=== PATIENT | female | born 1965 | race Caucasian/White ===

== ENCOUNTER → 2018-03-24 | Outpatient (CLI) | payer OTHER ==
[~2018-03-24] MED LIST: ALBUTEROL INHALER IH; ATOR20TA22 PO; AUG875 PO; BACDS PO; CEPT PO; CIP500 PO; CIPR-212 PO; CIPR-326 PO; CITA-128 PO; CLIN300C99 PO; CLON-303 *; CLONAZEPAM PO; CRAN250T PO; CRAN400C2 PO; CRANBERRY; CYC10 PO; CYCL-332 PO; DOC100 PO; GABA-549 PO; HYDEL PO; HYDR-3078 PO; HYDR-4309 PO; IBU800 PO; KET10 PO; LEV500 PO; LEVO25TA56 PO; LEVO75TA73 PO; LOR5 PO; MELO-205 PO; NOR5/325 PO; PAN40 PO; PER PO; PHENA200 PO; PRE20 PO; PRED20TA6 PO; PRO25 PO; PROAIRPT IH; PROG200C7 PO; PROM-110 PO; PROTONIX PO; RAN150 PO; TRA50 PO; [UNRECOGNIZED DRUG - CODE] PO; [UNRECOGNIZED DRUG - REMARK]; dex60pt PO
--- NOTE | 2018-03-25 08:37 | RADIOLOGY IMAGING REPORT ---
FACILITY: [facility] PATIENT NAME: AUBREY LOPEZ : [id number] MR: [id number] V: [id number] EXAM DATE: ORDERING PHYSICIAN: GREG SALTER TECHNOLOGIST: Marian Mendez PROCEDURE:BILATERAL DIGITAL SCREENING MAMMOGRAM WITH CAD ASSISTED INTERPRETATION & 3D TOMOSYNTHESIS COMPARISON:Prior mammograms 02/05/17, 01/23/15, 01/10/14, 12/15/12, 12/11/11. INDICATIONS:screening FINDINGS: There is prominent fatty replacement throughout the breasts. The parenchymal pattern has remained stable allowing for difference in mammographic technique & patient positioning. There is no evidence of malignant appearing mass, malignant appearing calcifications or other secondary sign of malignancy in either breast. DIAGNOSTIC CATEGORY 1--NEGATIVE. RECOMMENDATIONS: ROUTINE MAMMOGRAM AND CLINICAL EVALUATION. IMPRESSION: BIRADS 1: Negative No significant abnormality is seen. Dictated by: Kailey Dougherty M.D. on 03/24/2018 at 17:49 Transcribed by: SHABNAM on 03/25/2018 at 8:24 Approved by: Kailey Dougherty M.D. on 03/25/2018 at 8:36 [facility]
== END ==
LOC: MAMO 02:27
PROVIDERS: ATTEND Physician Assistant
DX: Z12.31 Encounter for screening mammogram for malignant neoplasm of breast (principal)
CPT/HCPCS: 77063; 77067

== ENCOUNTER 2018-03-25 02:54 | Day surgery (SDC) | payer OTHER ==
[~2018-03-25] VITALS: Ht 149.9 cm; Wt 85.3 kg
[2018-03-25] MEDS ORDERED: PROPOFOL EMUL(*) 10MG/ML 20 ML 60 ML ONE (08:26)
[2018-03-25] MEDS ORDERED: LIDOCAINE MPF 1% 5 ML VIAL ONE (08:26)
[2018-03-25] MEDS ORDERED: GLYCOPYRROLATE 0.2MG/ML 1 ML INJ IVP ONE (11:10)
[2018-03-25 11:53] VITALS: BP 133/77
[2018-03-25] MEDS ORDERED: NORMOSOL R SOLN(*) 1000 ML BAG 1,000 ML IV PRN (12:05)
[2018-03-25] MEDS ORDERED: LIDOCAINE/SOD BICARB 8.4% SYR ID ONE (12:05)
[2018-03-25 13:08] VITALS: BP 103/61
[2018-03-25 13:19] VITALS: BP 113/64
[2018-03-25 13:37] VITALS: BP 101/62
[2018-03-25 13:42] VITALS: BP 115/68
[2018-03-25 13:43] VITALS: BP 107/73
== END 2018-03-25 13:56 | disposition home or self-care (01) ==
LOC: OR 02:54
PROVIDERS: ATTEND Family Medicine
DX: Z12.11 Encounter for screening for malignant neoplasm of colon (principal)
CPT/HCPCS: 00812; 45378; J2001; J2704; J3490

== ENCOUNTER 2018-06-03 19:06 | Emergency (ER) | payer SELFPAY ==
--- NOTE | 2018-06-03 19:17 | ER Report ---
History and Physical Time Seen By MD: 19:11 Hx. of Stated Complaint: NIKIA STARTED HAVING PAIN IN MID CHEST THAT STARTED AROUND 1130, PATIENT STATES A LITTLE NAUSEA WITH PAIN. HPI/ROS CHIEF COMPLAINT: Chest pain HISTORY OF PRESENT ILLNESS: This is a 52 year old female. She had chest pain start this afternoon. She was watching her grandsons, and states that they got a little rambunctious. She started having pain in the central chest and off to the left side of the chest and a little to the neck/shoulder area on the left. Has some shortness of breath with this. Pain has not changes. Is described as an ache. Nothing makes it worse or better. She does smoke. She has no history of heart problems in the past. No history of lung diseases. No cough or fevers. Mild nausea. Allergies: Coded Allergies: Sulfa (Sulfonamide Antibiotics) (Unverified Allergy, Mild, RASH AND ITCHING, 04/24/16) Home Meds Active Scripts Prednisone (PREDNISONE) 20 Mg Tablet, 60 MG PO QDAY, #12 TAB 0 Refills Prov:CHRISTINE CAMARGO MD 06/03/18 Reported Medications [Blood Pressure Med] No Conflict Check, PO PRN Y for HYPERTENSION 06/03/18 Gabapentin (GABAPENTIN) 300 Mg Capsule, 2 MG PO QHS, CAPSULE 03/17/18 Levothyroxine Sodium (LEVOTHYROXINE SODIUM) 75 Mcg Tablet, 88 MCG PO QDAY, TAB 03/17/18 Meloxicam (MELOXICAM) 7.5 Mg Tablet, 7.5 MG PO BID Y for PAIN 07/08/16 Atorvastatin Calcium (LIPITOR) 20 Mg Tablet, 1 TAB PO QDAY, TAB TAKE ONE TABLET BY MOUTH ONCE A DAY AT BED TIME 10/01/14 Citalopram Hydrobromide (Citalopram Hbr) 20 Mg Tablet, 20 MG PO QAFTERNOON, 0 Refills 12/20/11 Reviewed Nurses Notes: Yes Hx Smoking: Yes (5-6 CIGS A DAY ) Smoking Status: Current: Every Day Smoker Exposure to Second Hand Smoke?: Yes Hx Substance Use Disorder: No Hx Alcohol Use: No Constitutional Vital Sign - Last 24 Hours 06/03/18 06/03/18 06/03/18 06/03/18 19:10 19:20 19:21 19:35 Temp 98.4 Pulse 85 96 87 98 Resp 16 14 11 14 B/P (MAP) 120/79 Pulse Ox 94 95 O2 Delivery Room Air 06/03/18 06/03/18 06/03/18 06/03/18 19:36 20:00 20:06 20:11 Pulse 86 80 77 Resp 15 20 15 B/P (MAP) 117/69 (85) Pulse Ox 91 94 92 06/03/18 06/03/18 06/03/18 20:26 20:30 20:37 Pulse 74 85 Resp 15 16 B/P (MAP) 107/68 (81) 138/88 (105) Pulse Ox 93 92 O2 Delivery Room Air Physical Exam General Appearance: The patient is alert. No acute distress. Eyes: Pupils are equal, round. No pallor, injection or icterus. ENT: Mucous membranes are moist. Normal oral mucosa. Posterior oropharynx is normal. Neck: Supple and non tender. Respiratory: Lungs have diffuse expiratory wheezing. Cardiovascular: Regular rate and rhythm. No murmurs, gallops or rubs. Normal capillary refill. Gastrointestinal: Abdomen is soft and non tender. Nondistended. Normal active bowel sounds. Neurological: Alert and oriented x3. Skin: Warm and dry. Musculoskeletal: Extremities are nontender. Has mild reproducible pain with palpation of the chest. No tenderness in palpation of the back and spine. DIFFERENTIAL DIAGNOSIS: After history and physical exam, differential diagnosis was considered for chest pain including but not limited to myocardial ischemia, pericarditis pulmonary embolus, chest wall pain, pleural inflammation and pulmonary infectious causes. Medical Decision Making Data Points Result Diagram: 06/03/18192906/03/181929 Laboratory Hematology Test 06/03/18 19:30 Red Blood Count 5.52 M/uL (4.17-5.56) Mean Corpuscular Volume 85.1 fL (80.0-96.0) Mean Corpuscular Hemoglobin 29.5 pg (26.0-33.0) Mean Corpuscular Hemoglobin Concent 34.6 g/dL (32.0-36.0) Red Cell Distribution Width 14.6 % (11.5-14.5) Mean Platelet Volume 7.2 fL (7.2-11.1) Neutrophils (%) (Auto) 47.1 % (39.4-72.5) Lymphocytes (%) (Auto) 37.1 % (17.6-49.6) Monocytes (%) (Auto) 8.7 % (4.1-12.4) Eosinophils (%) (Auto) 5.8 % (0.4-6.7) Basophils (%) (Auto) 1.3 % (0.3-1.4) Nucleated RBC Relative Count (auto) 0.0 /100WBC Neutrophils # (Auto) 4.0 K/uL (2.0-7.4) Lymphocytes # (Auto) 3.1 K/uL (1.3-3.6) Monocytes # (Auto) 0.7 K/uL (0.3-1.0) Eosinophils # (Auto) 0.5 K/uL (0.0-0.5) Basophils # (Auto) 0.1 K/uL (0.0-0.1) Nucleated RBC Absolute Count (auto) 0.00 K/uL D-Dimer Quantitative (PE/DVT) 0.37 ug/ml (0-0.50) Sodium Level 140 mmol/L (137-145) Potassium Level 3.8 mmol/L (3.5-5.0) Chloride Level 104 mmol/L (98-107) Carbon Dioxide Level 28 mmol/L (22-31) Blood Urea Nitrogen 9 mg/dl (7-18) Creatinine 0.90 mg/dl (0.52-1.04) Glomerular Filtration Rate Calc > 60.0 Random Glucose 93 mg/dl (75-110) Calcium Level 8.6 mg/dl (8.4-10.2) Total Bilirubin 0.2 mg/dl (0.2-1.3) Aspartate Amino Transf (AST/SGOT) 22 U/L (0-35) Alanine Aminotransferase (ALT/SGPT) 20 U/L (0-56) Alkaline Phosphatase 89 U/L (0-126) Troponin I < 0.012 ng/ml B-Type Natriuretic Peptide 8 pg/ml (0-100) Total Protein 7.1 g/dl (6.3-8.2) Albumin 4.0 g/dl (3.5-5.0) Chemistry Test 06/03/18 19:30 White Blood Count 8.4 k/uL (4.5-11.0) Red Blood Count 5.52 M/uL (4.17-5.56) Hemoglobin 16.3 g/dL (12.0-16.0) Hematocrit 47.0 % (34.0-47.0) Mean Corpuscular Volume 85.1 fL (80.0-96.0) Mean Corpuscular Hemoglobin 29.5 pg (26.0-33.0) Mean Corpuscular Hemoglobin Concent 34.6 g/dL (32.0-36.0) Red Cell Distribution Width 14.6 % (11.5-14.5) Platelet Count 355 K/uL (150-450) Mean Platelet Volume 7.2 fL (7.2-11.1) Neutrophils (%) (Auto) 47.1 % (39.4-72.5) Lymphocytes (%) (Auto) 37.1 % (17.6-49.6) Monocytes (%) (Auto) 8.7 % (4.1-12.4) Eosinophils (%) (Auto) 5.8 % (0.4-6.7) Basophils (%) (Auto) 1.3 % (0.3-1.4) Nucleated RBC Relative Count (auto) 0.0 /100WBC Neutrophils # (Auto) 4.0 K/uL (2.0-7.4) Lymphocytes # (Auto) 3.1 K/uL (1.3-3.6) Monocytes # (Auto) 0.7 K/uL (0.3-1.0) Eosinophils # (Auto) 0.5 K/uL (0.0-0.5) Basophils # (Auto) 0.1 K/uL (0.0-0.1) Nucleated RBC Absolute Count (auto) 0.00 K/uL D-Dimer Quantitative (PE/DVT) 0.37 ug/ml (0-0.50) Glomerular Filtration Rate Calc > 60.0 Calcium Level 8.6 mg/dl (8.4-10.2) Total Bilirubin 0.2 mg/dl (0.2-1.3) Aspartate Amino Transf (AST/SGOT) 22 U/L (0-35) Alanine Aminotransferase (ALT/SGPT) 20 U/L (0-56) Alkaline Phosphatase 89 U/L (0-126) Troponin I < 0.012 ng/ml B-Type Natriuretic Peptide 8 pg/ml (0-100) Total Protein 7.1 g/dl (6.3-8.2) Albumin 4.0 g/dl (3.5-5.0) Coagulation Test 06/03/18 19:30 D-Dimer Quantitative (PE/DVT) 0.37 ug/ml EKG/Imaging EKG Interpretation 12 lead EKG: Rhythm: normal sinus rhythm, rate 83 [place]: normal QRS: Somewhat low voltage ST segments: Nonspecific T-wave changes but no ST elevation or depression Imaging 2 VIEWS CHEST INDICATION: Chest pain. COMPARISON: 04/07/2012. FINDINGS: Cardiomediastinal silhouette and pulmonary vessels within normal limits. There is no focal infiltrate or lobar consolidation. There is no pneumothorax or pleural effusion. No nodule. Upper abdomen is unremarkable. No acute bony abnormality. IMPRESSION: 1. No acute cardiopulmonary process. Report Dictated By: Tristen Law at 06/03/2018 8:03 PM ED Course/Re-evaluation Clinical Indication for ER IV: IV Access ED Course Significant improvement with DuoNeb treatment. Wheezing decreased, less short of breath, and only mild pain now. The rest of the workup was negative as above. This appears to be inflammatory and she likely has early COPD with her smoking history. Will treat with Prednisone 60mg daily for 5 days as a burst, first dose given here in the ER. Use of Albuterol inhaler as well. Discussed smoking cessation as well. Decision to Disposition Date: Jun 03, 2018 Decision to Disposition Time: 20:24 Depart Departure Latest Vital Signs Vital Signs Date Time Temp Pulse Resp B/P (MAP) Pulse Ox O2 Delivery O2 Flow Rate FiO2 06/03/18 20:37 85 16 138/88 (105) 92 Room Air 06/03/18 19:10 98.4 Impression: Primary Impression: Wheezing Additional Impression: Pleuritic chest pain Condition: Improved Disposition: HOME OR SELF-CARE Referrals: GREG SALTER PA-C (PCP) New Scripts Prednisone (PREDNISONE) 20 Mg Tablet 60 MG PO QDAY, #12 TAB 0 Refills Prov: CHRISTINE CAMARGO MD 06/03/18 Patient Instructions: COPD (Chronic Obstructive Pulmonary Disease) (ED), Pleurisy (ED) Additional Instructions: We found that you pain is likely inflammatory in nature, causing the chest pain and the shortness of breath. This is going to be due in part to your tobacco used and likely early changes that lead to COPD. Use the albuterol inhaler. 2 puffs every 4 hours as needed for shortness of breath. Take Prednisone 20mg tablets, 3 tablets once a day for 4 more days. Rest for the next few days. Avoid stressful situations. 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 Problem Qualifiers CHRISTINE CAMARGO MD Jun 03, 2018 19:16
[2018-06-03] MEDS ORDERED: ASPIRIN 81 MG CHEW PO ONE (19:20)
[2018-06-03] MEDS ORDERED: ALBUTEROL/IPRATROPIUM 3 ML NEB NEB ONE (19:20)
[2018-06-03] MEDS ORDERED: BLOOD PRESSURE MED PO (19:40)
[2018-06-03 19:42] LABS: PLATELET COUNT, AUTOMATED 355 K/uL (150-450)
--- NOTE | 2018-06-03 20:07 | RADIOLOGY IMAGING REPORT ---
FACILITY: [facility] PATIENT NAME: Adrianne Frey : 1965 MR: [id number] V: [id number] EXAM DATE: ORDERING PHYSICIAN: CHRISTINE CAMARGO TECHNOLOGIST: [facility] Patient: Adrianne Frey : 1965 Visit/Account:[id number] Date of Sevice: 06/03/2018 2 VIEWS CHEST INDICATION: Chest pain. COMPARISON: 04/07/2012. FINDINGS: Cardiomediastinal silhouette and pulmonary vessels within normal limits. There is no focal infiltrate or lobar consolidation. There is no pneumothorax or pleural effusion. No nodule. Upper abdomen is unremarkable. No acute bony abnormality. IMPRESSION: 1. No acute cardiopulmonary process. Report Dictated By: Tristen Law at 06/03/2018 8:03 PM Report E-Signed By: Tristen Law at 06/03/2018 8:04 PM WSN:[id number]
[2018-06-03] MEDS ORDERED: predniSONE 20 MG TAB PO ONE (20:25)
[2018-06-03] MEDS ORDERED: ALBUTEROL 8 GM INHALER INH ONE (20:25)
[2018-06-03] MEDS ORDERED: PRED20TA6 PO (20:28)
[2018-06-03 20:37] VITALS: BP 138/88
--- NOTE | 2018-06-03 21:40 | EKG ---
[place] [facility] [place]IENT NAME: AUBREY LOPEZ : [id number] MR: [id number] V: [id number] EXAM DATE: ORDERING PHYSICIAN: CHRISTINE CAMARGO TECHNOLOGIST: ANABELLA Groves Reason : CHEST PAIN Blood Pressure : / mmHG Vent. Rate : 083 BPM Atrial Rate : 083 BPM P-R Int : 170 ms QRS Dur : 084 ms QT Int : 380 ms P-R-T Axes : 065 020 026 degrees QTc Int : 446 ms Normal sinus rhythm Low voltage QRS No ST-T abnormalities No previous ECGs available Confirmed by JOHN MONROE ([id number]) on 06/04/2018 7:33:03 AM Referred By: Confirmed By:JOHN MONROE
== END 2018-06-03 20:40 | disposition home or self-care (01) ==
LOC: ER 20:01
DX: R07.81 Pleurodynia (principal); R06.2 Wheezing
CPT/HCPCS: 83880; 84484; 85025; 85379; 94640; 99283; J3535; J7512; J7620; 71046; 82040; 82247; 82310; 82374; 82435; 82565; 82947; 84075; 84132; 84155; 84295; 84450; 84460; 84520

== ENCOUNTER 2019-03-07 16:01 | Emergency (ER) | payer SELFPAY ==
[~2019-03-07 16:01] MED LIST changes: +BLOOD PRESSURE MED PO; -HYDR-4309 PO; +HYDR-653 PO
--- NOTE | 2019-03-07 16:04 | ER Report ---
History and Physical Time Seen By MD: 16:03 HPI/ROS CHIEF COMPLAINT: Nausea, burning with urination, increased frequency since yesterday. HISTORY OF PRESENT ILLNESS: Patient is a 53-year-old female here with complaints of nausea, burning with urination, increased frequency since yesterday. Patient reports having some left-sided flank pain which she reports is similar to prior urinary tract infections. She also has mild right upper quadrant abdominal pain. Patient is afebrile, hemodynamically stable at time of evaluation with no rebound or guarding of the abdomen. REVIEW OF SYSTEMS: Constitutional: No fever, no chills. Eyes: No discharge. ENT: No sore throat. Cardiovascular: No chest pain, no palpitations. Respiratory: No cough, no shortness of breath. Gastrointestinal: + RUQ mild abdominal pain, + left CVA tenderness, + nausea with no vomiting. Genitourinary: + burning and increased frequency, no hematuria. Musculoskeletal: No back pain. Skin: No rashes. Neurological: No headache. Allergies: Coded Allergies: Sulfa (Sulfonamide Antibiotics) (Unverified Allergy, Mild, RASH AND ITCHING, 04/24/16) Home Meds Active Scripts Ondansetron 4 Mg Odt (ONDANSETRON 4 MG ODT) 4 Mg Tab.rapdis, 4 MG PO Q4-6H PRN for NAUSEA, #20 TAB Prov:PEDRO OSCAR DO 03/07/19 Reported Medications [Blood Pressure Med] No Conflict Check, PO PRN PRN for HYPERTENSION 06/03/18 Levothyroxine Sodium (LEVOTHYROXINE SODIUM) 75 Mcg Tablet, 88 MCG PO QDAY, TAB 03/17/18 Meloxicam (MELOXICAM) 7.5 Mg Tablet, 7.5 MG PO BID PRN for PAIN 07/08/16 Atorvastatin Calcium (LIPITOR) 20 Mg Tablet, 1 TAB PO QDAY, TAB TAKE ONE TABLET BY MOUTH ONCE A DAY AT BED TIME 10/01/14 Citalopram Hydrobromide (Citalopram Hbr) 20 Mg Tablet, 20 MG PO QAFTERNOON, 0 Refills 12/20/11 Hx Smoking: Yes (5-6 CIGS A DAY ) Smoking Status: Current: Every Day Smoker Exposure to Second Hand Smoke?: Yes Hx Substance Use Disorder: No Hx Alcohol Use: No Constitutional Physical Exam General Appearance: [The patient is alert, has no immediate need for airway protection and no signs of toxicity.] [ ] [Eyes:] [Pupils equal and round no pallor or injection.] [ENT, Mouth:] [Mucous membranes are moist.] Respiratory: [There are no retractions, lungs are clear to auscultation.] Cardiovascular: [Regular rate and rhythm.] [ ] Gastrointestinal: [Abdomen is soft and non tender, no masses, bowel sounds normal.] [Neurological:] [ ] [Skin:] [Warm and dry, no rashes.] [Musculoskeletal:] [Neck is supple non tender.] [Extremities are nontender, nonswollen and have full range of motion.] [ ] [DIFFERENTIAL DIAGNOSIS: After history and physical exam differential diagnosis was considered for] [ ] Medical Decision Making Data Points Laboratory Hematology Test 03/07/19 16:06 03/07/19 16:26 Urine Color Yellow Urine Clarity Slightly-cloudy Urine pH 5.0 pH (4.8-9.5) Urine Specific [place] 1.008 Urine Protein Negative mg/dL (NEGATIVE) Urine Glucose (UA) Negative mg/dL (NEGATIVE) Urine Ketones Negative mg/dL (NEGATIVE) Urine Blood Negative (NEGATIVE) Urine Nitrite Negative (NEGATIVE) Urine Bilirubin Negative (NEGATIVE) Urine Urobilinogen Negative mg/dL (0.2-1.9) Urine Leukocyte Esterase Negative (NEGATIVE) Urine RBC None /HPF (0-2/HPF) Urine WBC 1 /HPF (0-5/HPF) Urine Squamous Epithelial Cells Many /LPF (</=FEW) Urine Bacteria Few /HPF (NONE-FEW) Urine Mucus None /HPF (NONE-FEW) Red Blood Count 5.53 M/uL (4.17-5.56) Mean Corpuscular Volume 86.2 fL (80.0-96.0) Mean Corpuscular Hemoglobin 29.1 pg (26.0-33.0) Mean Corpuscular Hemoglobin Concent 33.7 g/dL (32.0-36.0) Red Cell Distribution Width 15.2 % (11.5-14.5) Mean Platelet Volume 7.0 fL (7.2-11.1) Neutrophils (%) (Auto) 56.9 % (39.4-72.5) Lymphocytes (%) (Auto) 30.8 % (17.6-49.6) Monocytes (%) (Auto) 7.4 % (4.1-12.4) Eosinophils (%) (Auto) 3.8 % (0.4-6.7) Basophils (%) (Auto) 1.1 % (0.3-1.4) Nucleated RBC Relative Count (auto) 0.0 /100WBC Neutrophils # (Auto) 4.3 K/uL (2.0-7.4) Lymphocytes # (Auto) 2.3 K/uL (1.3-3.6) Monocytes # (Auto) 0.6 K/uL (0.3-1.0) Eosinophils # (Auto) 0.3 K/uL (0.0-0.5) Basophils # (Auto) 0.1 K/uL (0.0-0.1) Nucleated RBC Absolute Count (auto) 0.00 K/uL Sodium Level 139 mmol/L (137-145) Potassium Level 4.2 mmol/L (3.5-5.0) Chloride Level 104 mmol/L (98-107) Carbon Dioxide Level 28 mmol/L (22-31) Blood Urea Nitrogen 12 mg/dl (7-18) Creatinine 0.90 mg/dl (0.52-1.04) Glomerular Filtration Rate Calc > 60.0 Random Glucose 94 mg/dl (75-110) Lactate 2.3 mmol/L (0.7-2.1) Calcium Level 8.7 mg/dl (8.4-10.2) Total Bilirubin 0.1 mg/dl (0.2-1.3) Aspartate Amino Transf (AST/SGOT) 23 U/L (0-35) Alanine Aminotransferase (ALT/SGPT) 23 U/L (0-56) Alkaline Phosphatase 88 U/L (0-126) Total Protein 7.4 g/dl (6.3-8.2) Albumin 3.9 g/dl (3.5-5.0) Lipase 293 U/L (23-300) Chemistry Test 03/07/19 16:06 03/07/19 16:26 Urine Color Yellow Urine Clarity Slightly-cloudy Urine pH 5.0 pH (4.8-9.5) Urine Specific [place] 1.008 Urine Protein Negative mg/dL (NEGATIVE) Urine Glucose (UA) Negative mg/dL (NEGATIVE) Urine Ketones Negative mg/dL (NEGATIVE) Urine Blood Negative (NEGATIVE) Urine Nitrite Negative (NEGATIVE) Urine Bilirubin Negative (NEGATIVE) Urine Urobilinogen Negative mg/dL (0.2-1.9) Urine Leukocyte Esterase Negative (NEGATIVE) Urine RBC None /HPF (0-2/HPF) Urine WBC 1 /HPF (0-5/HPF) Urine Squamous Epithelial Cells Many /LPF (</=FEW) Urine Bacteria Few /HPF (NONE-FEW) Urine Mucus None /HPF (NONE-FEW) White Blood Count 7.6 k/uL (4.5-11.0) Red Blood Count 5.53 M/uL (4.17-5.56) Hemoglobin 16.1 g/dL (12.0-16.0) Hematocrit 47.6 % (34.0-47.0) Mean Corpuscular Volume 86.2 fL (80.0-96.0) Mean Corpuscular Hemoglobin 29.1 pg (26.0-33.0) Mean Corpuscular Hemoglobin Concent 33.7 g/dL (32.0-36.0) Red Cell Distribution Width 15.2 % (11.5-14.5) Platelet Count 356 K/uL (150-450) Mean Platelet Volume 7.0 fL (7.2-11.1) Neutrophils (%) (Auto) 56.9 % (39.4-72.5) Lymphocytes (%) (Auto) 30.8 % (17.6-49.6) Monocytes (%) (Auto) 7.4 % (4.1-12.4) Eosinophils (%) (Auto) 3.8 % (0.4-6.7) Basophils (%) (Auto) 1.1 % (0.3-1.4) Nucleated RBC Relative Count (auto) 0.0 /100WBC Neutrophils # (Auto) 4.3 K/uL (2.0-7.4) Lymphocytes # (Auto) 2.3 K/uL (1.3-3.6) Monocytes # (Auto) 0.6 K/uL (0.3-1.0) Eosinophils # (Auto) 0.3 K/uL (0.0-0.5) Basophils # (Auto) 0.1 K/uL (0.0-0.1) Nucleated RBC Absolute Count (auto) 0.00 K/uL Glomerular Filtration Rate Calc > 60.0 Lactate 2.3 mmol/L (0.7-2.1) Calcium Level 8.7 mg/dl (8.4-10.2) Total Bilirubin 0.1 mg/dl (0.2-1.3) Aspartate Amino Transf (AST/SGOT) 23 U/L (0-35) Alanine Aminotransferase (ALT/SGPT) 23 U/L (0-56) Alkaline Phosphatase 88 U/L (0-126) Total Protein 7.4 g/dl (6.3-8.2) Albumin 3.9 g/dl (3.5-5.0) Lipase 293 U/L (23-300) Urinalysis Test 03/07/19 16:06 Urine Color Yellow Urine Clarity Slightly-cloudy Urine pH 5.0 pH (4.8-9.5) Urine Specific [place] 1.008 Urine Protein Negative mg/dL (NEGATIVE) Urine Glucose (UA) Negative mg/dL (NEGATIVE) Urine Ketones Negative mg/dL (NEGATIVE) Urine Blood Negative (NEGATIVE) Urine Nitrite Negative (NEGATIVE) Urine Bilirubin Negative (NEGATIVE) Urine Urobilinogen Negative mg/dL (0.2-1.9) Urine Leukocyte Esterase Negative (NEGATIVE) Urine RBC None /HPF (0-2/HPF) Urine WBC 1 /HPF (0-5/HPF) Urine Squamous Epithelial Cells Many /LPF (</=FEW) Urine Bacteria Few /HPF (NONE-FEW) Urine Mucus None /HPF (NONE-FEW) EKG/Imaging Imaging PATIENT NAME: Adrianne Frey : 1965 MR: [id number] V: [id number] EXAM DATE: [id number] ORDERING PHYSICIAN: PEDRO OSCAR TECHNOLOGIST: Location: [facility] [place] Patient: Adrianne Frey : 1965 Visit/Account:[id number] Date of Sevice: 03/07/2019 CT ABDOMEN PELVIS W/ CON HISTORY: left flank, right upper abd pain TECHNIQUE: Following administration of IV contrast contiguous axial images acquired through the abdomen/pelvis. Coronal and sagittal reformatting also performed.Dose Lowering Technique One of the following dose optimization techniques was utilized in the performance of this exam: Automated exposure control; adjustment of the mA and/or kV according to the patient's size; or use of an iterative reconstruction technique. Specific details can be referenced in the facility's radiology CT exam operational policy. CONTRAST: 75 mL Isovue-370 COMPARISON: October 01, 2014 FINDINGS: Visualized lung bases: There is a small band of scarring versus atelectasis in the inferior right middle lobe Hepatobiliary: There appears to be increased density in the gallbladder fundus which may represent stones or sludge. No evidence of biliary ductal dilatation. Spleen: Negative. Adrenals: Negative. Pancreas: Negative. Kidneys ureters or bladder: . There is no evidence of hydronephrosis or hydroureter or perinephric stranding Genitalia: Hysterectomy GI: There is thickening at the GE junction and possible small hiatal hernia. The cecum is located anterior and medial to the right lobe the liver. There is no evidence of bowel obstruction. The appendix is not definitively seen. Vessels/spaces/nodes: There shotty retroperitoneal lymph nodes that appears stable. There are mild atherosclerotic calcifications in the abdomen and pelvis Bones/soft tissues: There is a ventral hernia to the left midline containing omentum. The hernia opening measures approximately 2 cm and has increased slightly when compared to the prior study. there are moderate spondylotic changes in the lumbar spine Additional findings: None pertinent. IMPRESSION: There is a ventral hernia to the left midline containing omentum There is thickening of the GE junction and possible small hiatal hernia. This could be related to inflammation although clinical correlation needed. The hernia opening measures proximal and 2 cm and has increased slightly when compared to the prior study. Pelvis is not definitively seen. No evidence of bowel obstruction. No evidence of hydronephrosis. There appears to be increased density in the gallbladder fundus which may represent stones or sludge. This could be further evaluated with ultrasound ED Course/Re-evaluation ED Course Patient is a 53-year-old female here with complaints of right upper quadrant abdominal pain, burning with urination. Urinalysis was unremarkable. CT imaging showed no acute findings aside from possible sludging in the gallbladder without signs of cholecystitis. Labs were unremarkable, there is no leukocytosis. I updated the patient regarding these findings and she voiced understanding. Recommend close PCP follow-up and if right upper quadrant pain persists or worsens, patient was advised to follow-up with surgery for consideration for cholecystectomy. Patient was hemodynamically stable throughout course, afebrile. Return precautions provided. Decision to Disposition Date: Mar 07, 2019 Decision to Disposition Time: 17:31 Depart Departure Latest Vital Signs Impression: Primary Impression: Left flank pain Additional Impression: Right upper quadrant abdominal pain Condition: Improved Disposition: HOME OR SELF-CARE Referrals: GREG SALTER PA-C (PCP) New Scripts Ondansetron 4 Mg Odt (ONDANSETRON 4 MG ODT) 4 Mg Tab.rapdis 4 MG PO Q4-6H PRN for NAUSEA, #20 TAB Prov: PEDRO OSCAR DO 03/07/19 Patient Instructions: Abdominal Pain (ED) Additional Instructions: Please drink plenty of water. You may take Zofran 1 tablet every 4-6 hours as needed for nausea control. There were no signs of kidney infection on the labs and imaging. You do seem to have a gallstone or sludging in the gallbladder with no signs of current infection, please consider following up with surgery if you have persistent or ongoing right upper quadrant abdominal pain. Please return promptly if you develop difficulty urinating, fevers, worsening abdominal pain, abdominal distention, inability to keep down food or fluids. Problem Qualifiers PEDRO OSCAR DO Mar 07, 2019 16:04
[2019-03-07] MEDS ORDERED: NS(*) 0.9% 1000 ML BAG 1,000 ML IV ONE (16:14)
[2019-03-07] MEDS ORDERED: ONDANSETRON 4 MG/2 ML VIAL IVP ONE (16:15)
[2019-03-07] MEDS ORDERED: KETOROLAC 30 MG/ML VIAL IVP ONE (16:15)
[2019-03-07] MEDS ORDERED: IOPAMIDOL 76% 150 ML INFUS BTL 150 ML ONE (16:31)
[2019-03-07 16:34] LABS: PLATELET COUNT, AUTOMATED 356 K/uL (150-450)
--- NOTE | 2019-03-07 17:24 | RADIOLOGY IMAGING REPORT ---
FACILITY: [facility] - [place] PATIENT NAME: Adrianne Frey : 1965 MR: [id number] V: [id number] EXAM DATE: ORDERING PHYSICIAN: PEDRO OSCAR TECHNOLOGIST: Location: [facility] - [place] Patient: Adrianne Frey : 1965 Visit/Account:[id number] Date of Sevice: 03/07/2019 CT ABDOMEN PELVIS W/ CON HISTORY: left flank, right upper abd pain TECHNIQUE: Following administration of IV contrast contiguous axial images acquired through the abdom en/pelvis. Coronal and sagittal reformatting also performed.Dose Lowering Technique One of the following dose optimization techniques was utilized in the performance of this exam: Autom ated exposure control; adjustment of the mA and/or kV according to the patient's size; or use of an i terative reconstruction technique. Specific details can be referenced in the facility's radiology C T exam operational policy. CONTRAST: 75 mL Isovue-370 COMPARISON: October 01, 2014 FINDINGS: Visualized lung bases: There is a small band of scarring versus atelectasis in the inferior right mi ddle lobe Hepatobiliary: There appears to be increased density in the gallbladder fundus which may represent st ones or sludge. No evidence of biliary ductal dilatation. Spleen: Negative. Adrenals: Negative. Pancreas: Negative. Kidneys ureters or bladder: . There is no evidence of hydronephrosis or hydroureter or perinephric s tranding Genitalia: Hysterectomy GI: There is thickening at the GE junction and possible small hiatal hernia. The cecum is located a nterior and medial to the right lobe the liver. There is no evidence of bowel obstruction. The appe ndix is not definitively seen. Vessels/spaces/nodes: There shotty retroperitoneal lymph nodes that appears stable. There are mild atherosclerotic calcifications in the abdomen and pelvis Bones/soft tissues: There is a ventral hernia to the left midline containing omentum. The hernia op ening measures approximately 2 cm and has increased slightly when compared to the prior study. there are moderate spondylotic changes in the lumbar spine Additional findings: None pertinent. IMPRESSION: There is a ventral hernia to the left midline containing omentum There is thickening of the GE junction and possible small hiatal hernia. This could be related to in flammation although clinical correlation needed. The hernia opening measures proximal and 2 cm and h as increased slightly when compared to the prior study. Pelvis is not definitively seen. No evidence of bowel obstruction. No evidence of hydronephrosis. There appears to be increased density in the gallbladder fundus which may represent stones or sludge. This could be further evaluated with ultrasound Report Dictated By: Kailey Dougherty MD at 03/07/2019 5:08 PM Report E-Signed By: Kailey Dougherty MD at 03/07/2019 5:19 PM BHAVYAN:NIC
[2019-03-07] MEDS ORDERED: ONDA4TAB9 PO (17:35)
[2019-03-07 17:41] VITALS: BP 132/82
== END 2019-03-07 17:54 | disposition home or self-care (01) ==
LOC: ER 16:17
DX: R10.12 Left upper quadrant pain (principal); R30.9 Painful micturition, unspecified
CPT/HCPCS: 74177; 81001; 83605; 83690; 85025; 96361; 96374; 96375; 99284; J1885; J2405; J7030; Q9967; 82040; 82247; 82310; 82374; 82435; 82565; 82947; 84075; 84132; 84155; 84295; 84450; 84460; 84520

== ENCOUNTER → 2019-03-09 | Outpatient (CLI) | payer SELFPAY ==
[~2019-03-09] MED LIST changes: +ONDA4TAB9 PO
--- NOTE | 2019-03-09 10:47 | EKG ---
FACILITY: [facility] - [place] PATIENT NAME: AUBREY LOPEZ : [id number] MR: [id number] V: [id number] EXAM DATE: ORDERING PHYSICIAN: KIERA TONG TECHNOLOGIST: LV Test Reason : EKG Blood Pressure : / mmHG Vent. Rate : 077 BPM Atrial Rate : 077 BPM P-R Int : 166 ms QRS Dur : 070 ms QT Int : 384 ms P-R-T Axes : 032 014 016 degrees QTc Int : 434 ms Normal sinus rhythm Normal ECG When compared with ECG of 03-JUN-2018 19:23, No significant change was found Confirmed by ALVAREZ WORRELL ([id number]) on 03/10/2019 9:18:55 AM Referred By: Confirmed By:ALVAREZ WORRELL
--- NOTE | 2019-03-09 10:57 | RADIOLOGY IMAGING REPORT ---
[place] [facility] [place]: Adrianne Frey : 1965 MR: [id number] V: [id number] EXAM DATE: ORDERING PHYSICIAN: KIERA TONG TECHNOLOGIST: Location: [facility] Patient: Adrianne Frey : 1965 Visit/Account:[id number] Date of Sevice: 03/09/2019 Chest with lateral, two views. HISTORY: Preop, smoker. COMPARISON: 06/03/2018. Three images were obtained. Bronchovascular markings are slightly accentuated. The heart and medias tinum are unremarkable. Pulmonary vessels are otherwise unremarkable. The lungs are clear. The pleu ral surfaces are unremarkable. No pneumothorax. No acute bony abnormalities. IMPRESSION: No evidence of acute cardiopulmonary disease. Report Dictated By: Gustavo Griffith MD at 03/09/2019 10:49 AM Report E-Signed By: Gustavo Griffith MD at 03/09/2019 10:51 AM WSN:[id number]
== END ==
LOC: RESP 10:00
PROVIDERS: ATTEND Surgery
DX: Z01.818 Encounter for other preprocedural examination (principal); J44.9 Chronic obstructive pulmonary disease, unspecified
CPT/HCPCS: 71046

== ENCOUNTER 2019-03-29 01:04 | Day surgery (SDC) | payer SELFPAY ==
[~2019-03-29] VITALS: Ht 149.9 cm; Wt 93.9 kg
[~2019-03-29 01:04] MED LIST changes: +CHOL100058 PO
[2019-03-29] MEDS ORDERED: INDOCYANINE GREEN 25 MG VIAL IVP ONE (08:25)
[2019-03-29] MEDS ORDERED: LIDOCAINE/SOD BICARB 8.4% SYR ID ONE (08:30)
[2019-03-29] MEDS ORDERED: ceFAZolin(*) 2GM/D5W 50ML 50 ML IVPB ONE (08:30)
[2019-03-29] MEDS ORDERED: NORMOSOL R SOLN(*) 1000 ML BAG 1,000 ML IV PRN (08:30)
[2019-03-29] MEDS ORDERED: FAMOTIDINE 20 MG TAB PO ONE (08:30)
[2019-03-29] MEDS ORDERED: MIDAZOLAM 2 MG/2 ML VIAL IVP PRN (08:30)
[2019-03-29] MEDS ORDERED: fentaNYL CITR 100 MCG/2 ML AMP ONE ×2 (09:18→11:31)
[2019-03-29] MEDS ORDERED: DEXAMETHASONE SOD PHOS 10MG/ML ONE (09:19)
[2019-03-29] MEDS ORDERED: ONDANSETRON 4 MG/2 ML VIAL ONE (09:19)
[2019-03-29] MEDS ORDERED: LIDOCAINE MPF 1% 5 ML VIAL ONE (09:19)
[2019-03-29] MEDS ORDERED: ROCURONIUM BROM 10 MG/ML 10 ML ONE (09:19)
[2019-03-29] MEDS ORDERED: PROPOFOL EMUL(*) 10MG/ML 20 ML 20 ML ONE (09:19)
[2019-03-29 09:20] VITALS: BP 152/84
[2019-03-29] MEDS ORDERED: KETAMINE HCL-NS 50 MG/5 ML SYR ONE (09:21)
[2019-03-29] MEDS ORDERED: BUPIVACAINE/EPI 0.5% 50ML VIAL INFIL ONE (09:26)
[2019-03-29] MEDS ORDERED: NS(*) 0.9% 100 ML BAG 200 ML ONE (09:55)
[2019-03-29] MEDS ORDERED: ePHEDrine 25 MG/5 ML DISP.SYR IVP ONE (10:49)
[2019-03-29] MEDS ORDERED: TRAM-420 PO (11:23)
--- NOTE | 2019-03-29 11:26 | Short(Outpt) Discharge Summary ---
Discharge Summary Reason for Hosp/Final Diag: (1) Abdominal pain Status: Acute Hospital Course & Plan: pt presented for robotic cholecystectomy, ventral hernia repair without mesh, and egd. she tolerated the procedures well. path pending. she will be discharged home when criteria met. Departure Discharge to: Home Discharge Instructions Home Meds Active Scripts Tramadol Hcl (TRAMADOL HCL) 50 Mg Tablet, 50 MG PO Q4H, #20 TAB Prov:KIERA ZHU 03/29/19 Reported Medications Cholecalciferol (Vitamin D3) (VITAMIN D) 1,000 Unit Capsule, 3000 UNIT PO, CAPSULE 03/23/19 Levothyroxine Sodium (LEVOTHYROXINE SODIUM) 75 Mcg Tablet, 88 MCG PO QDAY, TAB 03/17/18 Meloxicam (MELOXICAM) 7.5 Mg Tablet, 7.5 MG PO BID PRN for PAIN 07/08/16 Atorvastatin Calcium (LIPITOR) 20 Mg Tablet, 1 TAB PO QDAY, TAB TAKE ONE TABLET BY MOUTH ONCE A DAY AT BED TIME 10/01/14 Citalopram Hydrobromide (Citalopram Hbr) 20 Mg Tablet, 20 MG PO QAFTERNOON, 0 Refills 12/20/11 Discontinued Reported Medications [Blood Pressure Med] No Conflict Check, PO PRN PRN for HYPERTENSION 06/03/18 Discontinued Scripts Ondansetron 4 Mg Odt (ONDANSETRON 4 MG ODT) 4 Mg Tab.rapdis, 4 MG PO Q4-6H PRN for NAUSEA, #20 TAB Prov:PEDRO OSCAR DO 03/07/19 Diet: Regular Activity: No Heavy Lifting Special Instructions: no lifting more than 15 lbs for 6 wks. ok to shower tomorrow. f/u [facility] 2 wks ([phone]). KIERA ZHU March 29, 2019 11:26
--- NOTE | 2019-03-29 11:34 | Post Operative Progress Note ---
Post Operative Progress Note Date: March 29, 2019 Time: 11:26 Surgeon: dr. holly zhu #[id number] Painting Contractor: none Anesthesia: gen, local dr. calderón Pre-Op Diagnosis: abd pain, ventral hernia, ge junction thickening Post-Op Diagnosis: same Findings: 2 cm ventral hernia Procedure(s): robotic cholecystectomy, laparoscopic ventral hernia repair without mesh, egd with biopsies Specimen Removed:(May be N/A): gb, egd biopsies Complications: none Fluids: iv crystalloid Estimated Blood Loss: minimal Date OP Note Dictated: March 29, 2019 Time OP Note Dictated: 11:29 KIERA ZHU March 29, 2019 11:34
[2019-03-29] MEDS ORDERED: traMADol 50 MG TAB ONE (11:51)
[2019-03-29] MEDS ORDERED: PROMETHAZINE 25 MG/ML 1 ML AMP ONE (11:56)
--- NOTE | 2019-03-29 12:03 | OPERATIVE REPORT 1 ---
EVENT DATE: March 29, 2019 SURGEON: Ari Stark MD ANESTHESIOLOGIST: Rubén George MD ANESTHESIA: General with local. RN REVIEW: None. PREOPERATIVE DIAGNOSES 1. Right upper quadrant pain. 2. Ventral hernia. 3. GE junction thickening on CT scan. POSTOPERATIVE DIAGNOSES 1. Right upper quadrant pain. 2. Ventral hernia. 3. Gastroesophageal junction thickening on CT scan. PROCEDURE PERFORMED 1. Robotic cholecystectomy. 2. Laparoscopic ventral hernia repair without mesh. 3. Esophagogastroduodenoscopy with biopsies. FLUIDS IV crystalloids. ESTIMATED BLOOD LOSS Minimal. SPECIMENS 1. Gallbladder. 2. EGD biopsies. COMPLICATIONS None. INDICATIONS This is a 53-year old female with recent right upper quadrant pain. CT scan showed possible sludge or stones. CT scan also showed thickening of the GE junction. Patient also has a 2 cm ventral hernia just above and to the left of the umbilicus. Risks and benefits of the procedures were explained and consent was signed. DESCRIPTION OF PROCEDURE Patient was taken to the operating room and placed in the supine position. General anesthesia was administered per the Anesthesia team. Patient was prepped and draped in normal sterile fashion. Local analgesia was injected into the dermis below the left costal margin and OptiView technique was used to place an 8 mm port. After injecting local analgesia and under direct visit, two left sided 8 mm ports were placed. I used these ports to take down adhesions and reduce the hernia. This was done with LigaSure and sharp dissection. Once the fatty tissue was completely reduced from the hernia defect, I placed a fourth 8 mm port through this site after injecting local analgesia and under direct vision. The robot was then docked. The fundus was grasped and retracted superiorly and laterally. The infundibulum was grasped and retracted. Electrocautery was used to free the cystic duct, the cystic artery and surrounding tissue. Both structures were seen going directly to the gallbladder. The cystic artery was very small and cautery easily divided. Hemostasis was assured. Three clips were then placed on the cystic duct and it was divided sharply between the distal two clips. The gallbladder was taken off the liver bed with electrocautery. It was removed with Endo Catch bag through one of the port sites. Hemostasis was assured. Laparoscopically, I then closed the 2 cm hernia defect with an 0 Prolene stitch x2, one of them used in a [id number] fashion. Ports were removed. Pneumoperitoneum was relieved. Final port was removed. All skin incisions were closed with 4-0 Monocryl subcuticular stitches. More local analgesia was injected. Appropriate dressings were applied. I then passed the gastroscope through the oropharynx down the esophagus into the stomach and into the first and second portions of the duodenum. There was mild inflammation in the first portion of the duodenum. Biopsies were taken. Scope was retroflexed. There was mild inflammation diffusely throughout the stomach including the fundus and the cardia. Biopsies were taken from the antrum. Scope was withdrawn into the esophagus. There may have been thickening of the distal esophagus but there was no mass. Biopsies were taken. Hemostasis was assured. Insufflation was suctioned. Remainder of the esophagus was within normal limits. The scope was withdrawn. The patient tolerated the procedure well and there were no complications. [facility]PITALRabia
[2019-03-29 12:15] VITALS: BP 109/69
[2019-03-29 12:49] VITALS: BP 107/64
[2019-03-29] MEDS ORDERED: ACETAMINOPHEN 500 MG TAB PO ONE (12:55)
[2019-03-29 13:01] VITALS: BP 115/68
--- NOTE | 2019-03-29 13:03 | NUR ---
RN INTO ROOM. PT. GIVEN ADDITIONAL MEDICATION FOR PAIN. ENCOURAGED TO DEEP BREATH AND COUGH. GIVEN CHEESE AND CRACKERS TOLERATING. WILL TRY AEROBIKA.
[2019-03-29 13:55] VITALS: BP 122/86
[2019-03-29 13:56] VITALS: BP 131/80
== END 2019-03-29 12:15 | disposition home or self-care (01) ==
LOC: OR 01:04
PROVIDERS: ATTEND Surgery
DX: R10.11 Right upper quadrant pain (principal); K43.9 Ventral hernia without obstruction or gangrene; R93.3 Abnormal findings on diagnostic imaging of other parts of digestive tract; J44.9 Chronic obstructive pulmonary disease, unspecified
CPT/HCPCS: 43239; 47562; 49652; 87077; 88304; 88305; 88313; 88342; 94667; J1100; J2001; J2405; J2550; J2704; J3010; J3490; J7050; S2900; J0690

== ENCOUNTER 2019-05-14 20:45 | Emergency (ER) | payer SELFPAY ==
[~2019-05-14 20:45] MED LIST changes: +PANT40TA65 PO; +TRAM-420 PO
--- NOTE | 2019-05-14 21:20 | ER Report ---
History and Physical Time Seen By MD: 21:18 Hx. of Stated Complaint: patient has a sharp pain in left upper quadrant that radiates across abdomen that started last night, patient states it hurts when she breaths. HPI/ROS CHIEF COMPLAINT: left upper abdominal pain. HISTORY OF PRESENT ILLNESS: This is a 53 year old female. Having some left upper abdominal pain which started last night. Radiates across to epigastric area. Some nausea, but no vomiting. Normal bowel movements. No problems with urination. Has some increase in pain with deep breaths. No cough or shortness of breath. No fevers or chills noted. Denies back pain. No weakness or numbness associated. NO blood in stool or melena. Has history of hiatal hernia and is on Protonix. REVIEW OF SYSTEMS: As above. Allergies: Coded Allergies: Sulfa (Sulfonamide Antibiotics) (Unverified Allergy, Mild, RASH AND ITCHING, 05/14/19) Home Meds Active Scripts Pantoprazole Sodium (PANTOPRAZOLE SODIUM) 40 Mg Tablet.dr, 40 MG PO QDAY for 30 Days, #30 TAB.SR 2 Refills Prov:KIERA TONG 05/03/19 Reported Medications Cholecalciferol (Vitamin D3) (VITAMIN D) 1,000 Unit Capsule, 3000 UNIT PO, CAP SHERRIE 03/23/19 Levothyroxine Sodium (LEVOTHYROXINE SODIUM) 75 Mcg Tablet, 88 MCG PO QDAY, TAB 03/17/18 Meloxicam (MELOXICAM) 7.5 Mg Tablet, 7.5 MG PO BID PRN for PAIN 07/08/16 Atorvastatin Calcium (LIPITOR) 20 Mg Tablet, 1 TAB PO QDAY, TAB TAKE ONE TABLET BY MOUTH ONCE A DAY AT BED TIME 10/01/14 Citalopram Hydrobromide (Citalopram Hbr) 20 Mg Tablet, 20 MG PO QAFTERNOON, 0 Refills 12/20/11 Discontinued Scripts Tramadol Hcl (TRAMADOL HCL) 50 Mg Tablet, 50 MG PO Q4H, #20 TAB Prov:KIERA TONG 03/29/19 Reviewed Nurses Notes: Yes Hx Smoking: Yes (5-6 CIGS A DAY ) Smoking Status: Current: Every Day Smoker Exposure to Second Hand Smoke?: Yes Hx Substance Use Disorder: No Hx Alcohol Use: No Constitutional Vital Sign - Last 24 Hours 05/14/19 05/14/19 05/14/19 05/14/19 20:56 21:00 21:15 21:30 Temp 97.8 Pulse 83 74 77 74 Resp 24 B/P (MAP) 128/66 116/77 (90) ???/??? (1665) Pulse Ox 92 92 91 92 O2 Delivery Room Air Intake and Output 05/14/19 05/14/19 05/15/19 15:01 23:01 07:01 Intake Total 1000 ml Balance 1000 ml Physical Exam General Appearance: The patient is alert. No acute distress. Eyes: Pupils are equal, round. No pallor, injection or icterus. ENT: Mucous membranes are moist. Normal oral mucosa. Posterior oropharynx is normal. Neck: Supple and non tender. Respiratory: Lungs are clear to auscultation. Cardiovascular: Regular rate and rhythm. No murmurs, gallops or rubs. Normal capillary refill. Gastrointestinal: Abdomen is soft, tender in the left upper quadrant and somewhat in epigastric area. Nondistended. No rebound or guarding. Normal active bowel sounds. No costovertebral angle tenderness with percussion. Some increase with deep breathing. Neurological: Alert and oriented x3. Cranial nerves II through XII show no acute deficits on my exam. No focal neurologic deficits in the extremities. Skin: Warm and dry. No rashes. Musculoskeletal: Extremities are nontender. No tenderness in palpation of the cervical, thoracic and lumbar spine. DIFFERENTIAL DIAGNOSIS: After history and physical exam, differential diagnosis was considered for abdominal pain, left upper quadrant and into epigastric area, most likely GI related such as ulcer, hiatal hernia, colitis, but would also consider pulmonary problem or urinary problem. Medical Decision Making Data Points Result Diagram: 05/14/19215405/14/192154 Laboratory Hematology Test 05/14/19 00:00 05/14/19 21:55 Urine Color Yellow Urine Clarity Clear Urine pH 5.0 pH (4.8-9.5) Urine Specific [place] 1.027 Urine Protein Negative mg/dL (NEGATIVE) Urine Glucose (UA) Negative mg/dL (NEGATIVE) Urine Ketones Negative mg/dL (NEGATIVE) Urine Blood Negative (NEGATIVE) Urine Nitrite Negative (NEGATIVE) Urine Bilirubin Negative (NEGATIVE) Urine Urobilinogen 0.2 mg/dL (0.2-1.9) Urine Leukocyte Esterase Negative (NEGATIVE) Urine RBC None /HPF (0-2/HPF) Urine WBC 3 /HPF (0-5/HPF) Urine Squamous Epithelial Cells Many /LPF (</=FEW) Urine Bacteria Few /HPF (NONE-FEW) Urine Hyaline Casts Many /LPF (NONE-FEW) Urine Mucus Few /HPF (NONE-FEW) Red Blood Count 5.15 M/uL (4.17-5.56) Mean Corpuscular Volume 86.9 fL (80.0-96.0) Mean Corpuscular Hemoglobin 30.1 pg (26.0-33.0) Mean Corpuscular Hemoglobin Concent 34.6 g/dL (32.0-36.0) Red Cell Distribution Width 15.0 % (11.5-14.5) Mean Platelet Volume 7.3 fL (7.2-11.1) Neutrophils (%) (Auto) 56.1 % (39.4-72.5) Lymphocytes (%) (Auto) 28.4 % (17.6-49.6) Monocytes (%) (Auto) 9.4 % (4.1-12.4) Eosinophils (%) (Auto) 5.0 % (0.4-6.7) Basophils (%) (Auto) 1.1 % (0.3-1.4) Nucleated RBC Relative Count (auto) 0.2 /100WBC Neutrophils # (Auto) 4.3 K/uL (2.0-7.4) Lymphocytes # (Auto) 2.2 K/uL (1.3-3.6) Monocytes # (Auto) 0.7 K/uL (0.3-1.0) Eosinophils # (Auto) 0.4 K/uL (0.0-0.5) Basophils # (Auto) 0.1 K/uL (0.0-0.1) Nucleated RBC Absolute Count (auto) 0.01 K/uL Sodium Level 141 mmol/L (137-145) Potassium Level 4.1 mmol/L (3.5-5.0) Chloride Level 106 mmol/L (98-107) Carbon Dioxide Level 24 mmol/L (22-31) Blood Urea Nitrogen 13 mg/dl (7-18) Creatinine 1.10 mg/dl (0.52-1.04) Glomerular Filtration Rate Calc 51.8 Random Glucose 102 mg/dl (75-110) Calcium Level 8.9 mg/dl (8.4-10.2) Total Bilirubin 0.3 mg/dl (0.2-1.3) Aspartate Amino Transf (AST/SGOT) 30 U/L (0-35) Alanine Aminotransferase (ALT/SGPT) 28 U/L (0-56) Alkaline Phosphatase 91 U/L (0-126) Total Protein 7.6 g/dl (6.3-8.2) Albumin 4.1 g/dl (3.5-5.0) Amylase Level 89 U/L (0-110) Lipase 172 U/L (23-300) Serum Alcohol < 10 mg/dl Chemistry Test 05/14/19 00:00 05/14/19 21:55 Urine Color Yellow Urine Clarity Clear Urine pH 5.0 pH (4.8-9.5) Urine Specific [place] 1.027 Urine Protein Negative mg/dL (NEGATIVE) Urine Glucose (UA) Negative mg/dL (NEGATIVE) Urine Ketones Negative mg/dL (NEGATIVE) Urine Blood Negative (NEGATIVE) Urine Nitrite Negative (NEGATIVE) Urine Bilirubin Negative (NEGATIVE) Urine Urobilinogen 0.2 mg/dL (0.2-1.9) Urine Leukocyte Esterase Negative (NEGATIVE) Urine RBC None /HPF (0-2/HPF) Urine WBC 3 /HPF (0-5/HPF) Urine Squamous Epithelial Cells Many /LPF (</=FEW) Urine Bacteria Few /HPF (NONE-FEW) Urine Hyaline Casts Many /LPF (NONE-FEW) Urine Mucus Few /HPF (NONE-FEW) White Blood Count 7.7 k/uL (4.5-11.0) Red Blood Count 5.15 M/uL (4.17-5.56) Hemoglobin 15.5 g/dL (12.0-16.0) Hematocrit 44.7 % (34.0-47.0) Mean Corpuscular Volume 86.9 fL (80.0-96.0) Mean Corpuscular Hemoglobin 30.1 pg (26.0-33.0) Mean Corpuscular Hemoglobin Concent 34.6 g/dL (32.0-36.0) Red Cell Distribution Width 15.0 % (11.5-14.5) Platelet Count 344 K/uL (150-450) Mean Platelet Volume 7.3 fL (7.2-11.1) Neutrophils (%) (Auto) 56.1 % (39.4-72.5) Lymphocytes (%) (Auto) 28.4 % (17.6-49.6) Monocytes (%) (Auto) 9.4 % (4.1-12.4) Eosinophils (%) (Auto) 5.0 % (0.4-6.7) Basophils (%) (Auto) 1.1 % (0.3-1.4) Nucleated RBC Relative Count (auto) 0.2 /100WBC Neutrophils # (Auto) 4.3 K/uL (2.0-7.4) Lymphocytes # (Auto) 2.2 K/uL (1.3-3.6) Monocytes # (Auto) 0.7 K/uL (0.3-1.0) Eosinophils # (Auto) 0.4 K/uL (0.0-0.5) Basophils # (Auto) 0.1 K/uL (0.0-0.1) Nucleated RBC Absolute Count (auto) 0.01 K/uL Glomerular Filtration Rate Calc 51.8 Calcium Level 8.9 mg/dl (8.4-10.2) Total Bilirubin 0.3 mg/dl (0.2-1.3) Aspartate Amino Transf (AST/SGOT) 30 U/L (0-35) Alanine Aminotransferase (ALT/SGPT) 28 U/L (0-56) Alkaline Phosphatase 91 U/L (0-126) Total Protein 7.6 g/dl (6.3-8.2) Albumin 4.1 g/dl (3.5-5.0) Amylase Level 89 U/L (0-110) Lipase 172 U/L (23-300) Serum Alcohol < 10 mg/dl Toxicology Test 05/14/19 21:55 Serum Alcohol < 10 mg/dl Urinalysis Test 05/14/19 00:00 Urine Color Yellow Urine Clarity Clear Urine pH 5.0 pH (4.8-9.5) Urine Specific [place] 1.027 Urine Protein Negative mg/dL (NEGATIVE) Urine Glucose (UA) Negative mg/dL (NEGATIVE) Urine Ketones Negative mg/dL (NEGATIVE) Urine Blood Negative (NEGATIVE) Urine Nitrite Negative (NEGATIVE) Urine Bilirubin Negative (NEGATIVE) Urine Urobilinogen 0.2 mg/dL (0.2-1.9) Urine Leukocyte Esterase Negative (NEGATIVE) Urine RBC None /HPF (0-2/HPF) Urine WBC 3 /HPF (0-5/HPF) Urine Squamous Epithelial Cells Many /LPF (</=FEW) Urine Bacteria Few /HPF (NONE-FEW) Urine Hyaline Casts Many /LPF (NONE-FEW) Urine Mucus Few /HPF (NONE-FEW) EKG/Imaging Imaging CT ABDOMEN PELVIS W/ CON HISTORY:upper abdominal pain TECHNIQUE: CT abdomen and pelvis with intravenous contrast. Contiguous axial images of the abdomen and pelvis was performed from the lung bases to the symphysis pubis. One of the following dose optimization techniques was utilized in the performance of this exam: Automated exposure control; adjustment of the mA and/or kV according to the patient's size; or use of an iterative reconstruction technique. Specific details can be referenced in the facility's radiology CT exam operational policy. CONTRAST: 75 cc of Isovue-370 COMPARISON: 03/07/2019 FINDINGS: Visualized lung bases: Negative. Hepatobiliary: There is fatty infiltration of liver. Gallbladder is absent. Bile ducts are decompressed. Spleen: Negative. Adrenals: Negative. Kidneys/: Negative. Pancreas: Negative. GI: Appendix is normal. No bowel obstruction or focal inflammation. Vessels/spaces/nodes: Atherosclerotic calcifications noted. Bones/soft tissues: Ventral hernia with fat in the defect is less prominent than prior exam. Degenerative changes are noted the spine. IMPRESSION: 1. No acute pathology in the abdomen or pelvis. The appendix is visualized and is normal. Gallbladder is absent. 2. Other chronic findings described above. Report Dictated By: Tristen Gamez MD at 05/14/2019 11:49 PM ED Course/Re-evaluation Clinical Indication for ER IV: Hydration, IV Access ED Course Labs and imaging negative as noted above. Recommended adding Zantac to the pantoprazole and follow-up with GI/general surgery for further evaluation. Decision to Disposition Date: May 15, 2019 Decision to Disposition Time: 00:43 Depart Departure Latest Vital Signs Vital Signs Date Time Temp Pulse Resp B/P (MAP) Pulse Ox O2 Delivery O2 Flow Rate FiO2 05/14/19 21:30 74 ???/??? (7292) 92 05/14/19 20:56 97.8 24 Room Air Impression: Primary Impression: Abdominal pain Condition: Improved Disposition: HOME OR SELF-CARE Patient Instructions: Abdominal Pain (ED) Additional Instructions: We did not find a cause for your abdominal pain tonight. Keep taking your Pantoprazole and add Zantac 150mg once or twice a day. Make a follow-up with your doctor this week for re-evaluation. Problem Qualifiers Primary Impression: Abdominal pain Abdominal location: left upper quadrant Qualified Codes: R10.12 - Left upper quadrant pain CHRISTINE CAMARGO MD May 14, 2019 21:20
[2019-05-14] MEDS ORDERED: NS(*) 0.9% 1000 ML BAG 1,000 ML IV ONE (21:45)
[2019-05-14 22:13] LABS: PLATELET COUNT, AUTOMATED 344 K/uL (150-450)
[2019-05-14] MEDS ORDERED: IOPAMIDOL 76% 100 ML INFUS BTL 100 ML ONE (23:16)
--- NOTE | 2019-05-15 | RADIOLOGY IMAGING REPORT ---
FACILITY: [facility] - [place] PATIENT NAME: Adrianne Frey : 1965 MR: [id number] V: [id number] EXAM DATE: ORDERING PHYSICIAN: CHRISTINE CAMARGO TECHNOLOGIST: Location: [facility] - [place] Patient: Adrianne Frey : 1965 Visit/Account:[id number] Date of Sevice: 05/14/2019 CT ABDOMEN PELVIS W/ CON HISTORY:upper abdominal pain TECHNIQUE: CT abdomen and pelvis with intravenous contrast. Contiguous axial images of the abdomen and pelvis was performed from the lung bases to the symphysis pubis. One of the following dose optimization techniques was utilized in the performance of this exam: Autom ated exposure control; adjustment of the mA and/or kV according to the patient's size; or use of an i terative reconstruction technique. Specific details can be referenced in the facility's radiology C T exam operational policy. CONTRAST: 75 cc of Isovue-370 COMPARISON: 03/07/2019 FINDINGS: Visualized lung bases: Negative. Hepatobiliary: There is fatty infiltration of liver. Gallbladder is absent. Bile ducts are decompres sed. Spleen: Negative. Adrenals: Negative. Kidneys/: Negative. Pancreas: Negative. GI: Appendix is normal. No bowel obstruction or focal inflammation. Vessels/spaces/nodes: Atherosclerotic calcifications noted. Bones/soft tissues: Ventral hernia with fat in the defect is less prominent than prior exam. Degene rative changes are noted the spine. IMPRESSION: 1. No acute pathology in the abdomen or pelvis. The appendix is visualized and is normal. Gallbladde r is absent. 2. Other chronic findings described above. Report Dictated By: Tristen Gamez MD at 05/14/2019 11:49 PM Report E-Signed By: Tristen Gamez MD at 05/14/2019 11:54 PM WSN:[id number]
[2019-05-15 00:45] VITALS: BP 114/73
== END 2019-05-15 00:51 | disposition home or self-care (01) ==
LOC: ER 21:37
DX: R10.12 Left upper quadrant pain (principal)
CPT/HCPCS: 74177; 80320; 81001; 82150; 83690; 85025; 96360; 99284; J7030; Q9967; 82040; 82247; 82310; 82374; 82435; 82565; 82947; 84075; 84132; 84155; 84295; 84450; 84460; 84520